=== PATIENT | male | born 1985 | race African-American/Black ===

== ENCOUNTER 2017-06-13 22:18 | Emergency (ER) | payer BC ==
[~2017-06-13] VITALS: Ht 190.5 cm; Wt 99.8 kg
[2017-06-14 01:28] VITALS: BP 144/112
== END 2017-06-14 03:06 | disposition home or self-care (01) ==
LOC: ER 22:18
DX: S62.301A Unspecified fracture of second metacarpal bone, left hand, initial encounter for closed fracture (principal); X58.XXXA Exposure to other specified factors, initial encounter; Y93.9 Activity, unspecified; Y92.89 Other specified places as the place of occurrence of the external cause; Y99.8 Other external cause status
CPT/HCPCS: 29125; 73130; 99284; J7030